=== PATIENT | male | born 1975 | race African-American/Black ===

== ENCOUNTER 2021-01-17 09:49 | Emergency (ER) | payer OTHER ==
[2021-01-17] MEDS ORDERED: TETANUS,DIPH,PERTUSS(ACELL) VACCINE 0.5 ML SYRINGE IM ONE (10:02)
[2021-01-17] MEDS ORDERED: MORPHINE 4 MG/1 ML INJ IV ONE (10:02)
[2021-01-17] MEDS ORDERED: ONDANSETRON 4 MG/2 ML INJ IV ONE (10:02)
--- NOTE | 2021-01-17 10:38 | XRay Report ---
RIGHT FINGERS 3 VIEWS INDICATION: injury. COMPARISON: None. IMPRESSION: Complex comminuted fractures with soft tissue defects are identified involving the middle phalanx of the second digit and the middle and distal phalanxes of the third digit. The DIP joint of the third digit appears to be involved. The remaining fingers are grossly intact. No joint pathology is appreciated. Signer Name: Saad Neves Jr, MD Signed: 01/17/2021 10:33 AM Workstation Name: [id number]
--- NOTE | 2021-01-17 10:48 | Emergency Department Report ---
Upper Extremity - HPI Chief Complaint: Extremity Injury, Upper Stated Complaint: FINGER LACS Time Seen by Provider: 01/17/21 10:03 Upper Extremity: Right Index Finger (Laceration), Right Middle Finger (Laceration) Occurred When: Today (Around 850) Severity: severe Symptoms: Yes Pain with Movement, Yes Deformity, Yes Limited Range of Movement, Yes Numbness, Yes Laceration or Abrasion Other History: 45-year-old male with no significant past history presents to the ER today complaining of laceration injury to his right index and third finger. Patient states that around 850 this morning he was mowing his lawn pushing a lawnmower. He states that some wet grass got stuck underneath the lawnmower and he tried to remove it was the lawnmower still running and as a result" in his fingers. Patient states that he is right-hand dominant. He reports pain, limited movement and numbness to the fingers. His tetanus is not up-to-date. He reports no other symptoms at this time. ED Review of Systems ROS: Stated complaint: FINGER LACS Other details as noted in HPI Comment: All other systems reviewed and negative Constitutional: denies: chills, fever Eyes: denies: eye pain, eye discharge, vision change ENT: denies: ear pain, throat pain Respiratory: denies: cough, shortness of breath, SOB with exertion, SOB at rest, wheezing Cardiovascular: denies: chest pain, palpitations Musculoskeletal: joint swelling, arthralgia, myalgia Skin: other (laceration to right index and right 3rd finger) Neurological: denies: headache, weakness, numbness, paresthesias, confusion, abnormal gait, vertigo Psychiatric: denies: anxiety, depression, auditory hallucinations, visual hallucinations, homicidal thoughts, suicidal thoughts Hematological/Lymphatic: denies: easy bleeding, easy bruising, swollen glands Upper Extremity Exam - Exam General: Vital signs noted. No distress. Alert and acting appropriately. Head and Torso: No HEENT Abnormality, No Neck Tenderness, No Chest/Lungs Abnormality, No Abdominal Tenderness, No Back Tenderness Shoulder Exam: Yes Normal Range of Motion in Shoulder, No Shoulder Tenderness, No Clavicle Tenderness, No Shoulder Deformity, No AC Joint Tenderness Arm Exam: No Arm/Humerus Tenderness, No Arm Deformity Elbow: Yes Normal Range of Motion in Elbow, No Elbow Tenderness, No Elbow Deformity Forearm: No Forearm Tenderness, No Forearm Deformity, No Pain with Pronation, No Pain with Supination Wrist: Yes Normal ROM in Wrist, No Wrist Tenderness, No Wrist Deformity, No Snuffbox Tenderness, No Pain with Axial Thumb Compression Hand: Yes Digit Tenderness (Severe tenderness to palpation mid to distal aspect of the right index finger, as well as the mid to distal finger of the right third finger), Yes Normal ROM in Digit(s) (Moderate decrease range of motion of the DIP joint of the right index, and right third finger.), Yes Digit(s) Deformity (Almost complete amputation noted to the right index finger at the level of the middle phalanx, and also the right third finger at the level of the DIP joint), Yes Tendon Dysfunction CMS Exam: Yes Broken Skin, Yes Normal Distal Pulses, No Normal Capillary Refill (Decreased), No Normal Distal Sensation (Decreased sensation to the distal aspect of the right index and third finger) ED Course Vital Signs 01/17/21 10:11 Pulse Rate 100 H Respiratory 16 Rate Blood Pressure 121/76 [Left] O2 Sat by Pulse 100 Oximetry ED Medical Decision Making - Radiology Data Radiology results: report reviewed Patient: VIRGINIA GONZALEZ MR#: [id number] : 1975 Acct:[id number] Age/Sex: 45 / M ADM Date: 01/17/21 Loc: ED Attending Dr: Ordering Physician: DUNIA CESPEDES MD Date of Service: 01/17/21 Procedure(s): XR finger(s) 2+V RT Accession Number(s): [id number] cc: DUNIA CESPEDES MD Fluoro Time In Minutes: RIGHT FINGERS 3 VIEWS INDICATION: injury. COMPARISON: None. IMPRESSION: Complex comminuted fractures with soft tissue defects are identified involving the middle phalanx of the second digit and the middle and distal phalanxes of the third digit. The DIP joint of the third digit appears to be involved. The remaining fingers are grossly intact. No joint pathology is appreciated. Signer Name: Jenni Neves Jr, MD Signed: 01/17/2021 10:33 AM Workstation Name: [id number] Transcribed By: TTR Dictated By: JENNI NEVES JR, MD Electronically Authenticated By: JENNI NEVES JR, MD Signed Date/Time: 01/17/21 1033 DD/ 1032 TD/TT: - Medical Decision Making Patient with partial amputation of the distal aspect of the right index the level of the middle phalanx, and right third finger at the level of the DIP joint with associated masserated skin with x-ray findings showing Complex comminuted fractures with soft tissue defects are identified involving the middle phalanx of the second digit and the middle and distal phalanxes of the third digit. The DIP joint of the third digit appears to be involved. Patient was given IV morphine, started on Ancef. Case discussed with Dr. Ladd who also evaluated patient and agree patient will need to be transferred for hand surgeon. 1119: Discussed case with Dr Rascon, Ortho hand surgeon at [facility], he recommend ER to ER transfer, and he will consult once patient gets to the ER. Dr Harper, ER trauma attending at [facility], has accepted patient. Discussed x-ray results and reason for transfer with the patient. He expressed understanding. He is currently stable. Critical care attestation.: If time is entered above; I have spent that time in minutes in the direct care of this critically ill patient, excluding procedure time. ED Disposition Clinical Impression: Open finger fracture, Partial traumatic amputation of finger through phalanx Disposition: [facility] Is pt being admited?: No Does the pt Need Aspirin: No Condition: Stable Referrals: PRIMARY CARE, [Primary Care Provider] - 3-5 Days
[2021-01-17 12:03] VITALS: BP 110/69
== END 2021-01-17 14:00 ==
LOC: ED 09:49
DX: S68.120A Partial traumatic metacarpophalangeal amputation of right index finger, initial encounter (principal); S68.122A Partial traumatic metacarpophalangeal amputation of right middle finger, initial encounter; X58.XXXA Exposure to other specified factors, initial encounter; Y93.89 Activity, other specified; Y92.89 Other specified places as the place of occurrence of the external cause; Y99.8 Other external cause status
CPT/HCPCS: 73140; 90471; 90715; 96365; 96375; 99285; J0690; J2270; J2405